=== PATIENT | female | born 1955 | race Caucasian/White ===

== ENCOUNTER 2018-10-24 16:52 | Inpatient (IN) ==
[2018-10-24] MEDS ORDERED: ZOFRAN IV PRN (17:34)
[2018-10-24] MEDS ORDERED: NS 1,000 ML IV SCH (17:45)
[2018-10-24] MEDS ORDERED: LOVENOX SUBQ SCH (17:45)
[2018-10-24] MEDS: PEPCID IV SCH (18:04)
[2018-10-24] MEDS: SODIUM CHLORIDE 0.9% INJ SCH (18:04)
[2018-10-24 18:25] LABS: BASO# 0.06 X1000 (0.0-0.2); BASO% 0.6 % (0.0-0.8); EOS# 0.28 X1000 (0.0-0.7); EOS% 2.6 % (0.0-10.0); HEMOGLOBIN 13.7 g/dL (12.0-16.0); IMM GRAN# 0.02 X1000 (0.0-0.04); IMM GRAN% 0.2 % (0.0-0.5); LYMPH# 3.61 X1000 (1.2-3.4); LYMPH% 33.3 % (20.5-51.1); MCH 30.2 PG (27-31); MCHC 32.6 g/dL (33-37); MCV 92.7 FL (81-99); MONO# 0.99 X1000 (0.11-0.59); MONO% 9.1 % (1.7-9.3); MPV 12.3 FL (7.4-10.4); NEUT# 5.89 X1000 (1.4-6.5); NEUT% 54.2 % (42.2-75.2); PLT 241 X1000 (130-400); RBC 4.53 XMIL (4.2-5.4); WBC 10.85 X1000 (4.8-10.8)
[2018-10-24 18:45] LABS: ALB/GLOB RATIO 1.2; ALBUMIN 4.1 g/dL (3.5-5.0); CALCIUM 9.4 mg/dL (8.8-10.2); CREATININE 1.2 mg/dL (0.5-0.9); TOTAL BILIRUBIN 0.19 mg/dL (0.20-1.00); TOTAL PROTEIN 7.6 g/dL (6.3-8.3)
[2018-10-24] MEDS ORDERED: SEROQUEL PO SCH (21:00)
[2018-10-24] MEDS ORDERED: MAGNESIUM GLUCONATE PO SCH (21:00)
[2018-10-24] MEDS ORDERED: REQUIP PO SCH (21:00)
--- NOTE | 2018-10-24 22:06 | Diag Imaging Result Doc PS360 ---
EXAM: CT ABD/PELVIS W/IV CONT ONLY 10/24/2018 HISTORY: Abdominal pain TECHNIQUE: This exam was performed using automated exposure control, adjustment of mA or kV according to patient size, and/or use of iterative reconstruction technique. COMMENT: The current study is compared with the previous examination of 02/01/2016. There is a 5 mm nodule in the right lower lobe which was not included on the previous exam. It was however on 07/29/2014. There is some mild platelike atelectasis in both lower lobes. There has been cholecystectomy. There is no evidence of abdominal aortic aneurysm and the mesenteric and renal arteries are patent. 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 The pancreas is stable in appearance. There is no evidence of hydronephrosis or stones. There has apparently been previous resection or ablation of the posterior lateral left kidney. This was also the case at the time the previous study. There is some fluid and gas in portions of the colon. Small bowel is not distended. There is no evidence of significant adenopathy. There is a small cyst inferiorly in the right right hepatic lobe which was also present previously. Pelvis: There is no evidence of appendicitis. There is stool and gas in the rectosigmoid without evidence of inflammation. The urinary bladder is unremarkable. There is no evidence of free fluid. There are some spondylotic changes in the lumbar spine which has not changed significantly since the previous study. IMPRESSION: No evidence of acute intra-abdominal or pelvic disease. Bibasilar atelectasis. Electronically signed by Kee Luis 10/24/2018 10:04 PM
--- NOTE | 2018-10-24 22:21 | HISTORY AND PHYSICAL ---
CHIEF COMPLAINT: Complains of upper abdominal pain for the last 2 days. HISTORY OF PRESENT ILLNESS: She is a 63-year-old, white female, basically came in with abdominal pain since 2 days. Upon workup, amylase was high. The patient basically admitted to the hospital with pancreatitis. Waiting for CT scan of the abdomen and pelvis. PAST MEDICAL HISTORY: Depression/anxiety, hyperlipidemia, dysautonomia, osteoporosis, vitamin D deficiency, postmenopausal, atrophic vaginitis. PAST SURGICAL HISTORY: Tonsillectomy, splenectomy, complete hysterectomy, left arm lipoma excision, status post partial nephrectomy due to complex benign cyst. MEDICATIONS: Xanax 0.5 p.o. t.i.d., metoprolol 25 daily, Lyrica 300 daily, Effexor 75 mg daily, Prilosec 40 mg daily. Quetiapine 50 at bedtime, Prozac 40 daily, Florinef 0.1 daily, magnesium 600 daily, Requip 0.5 at bedtime. ALLERGIES: Trimethoprim, Bactrim. SOCIAL HISTORY: . Two children. Living in [place], smoking half a pack a day for 40 years. No alcohol. FAMILY HISTORY: Father of [place]. Mom recently , deconditioning with a lot of medical problems. HEALTH MAINTENANCE: Shingles 2015. Tetanus 2004, mammography 2017, DEXA scan 2015. Pap smear 2011, colonoscopy [address] Abbasi. REVIEW OF SYSTEMS: HEENT Exam: No headache. No vision problem. No earache. No sore throat. Neck: No goiter. No lymphadenopathy. No bruit. Cardiopulmonary: No chest pain, shortness of breath, PND, orthopnea. GI: Upper abdominal pain mostly on the left side radiating to the back. No hematochezia and no constipation. Extremities: No joint pain. Neuro exam: No focal symptoms or weakness. PHYSICAL EXAMINATION: VITAL SIGNS: Temperature is 98, pulse 73, blood pressure is stable. 5 feet 3 inches, 149 pounds. HEENT: Atraumatic, normocephalic. Pupils equal, react to light. TMs are normal. Nose and throat within normal limits. NECK: Supple. No lymphadenopathy. No goiter. CHEST: Bilateral air entry. HEART: Sounds are regular. No murmur. ABDOMEN: Belly is soft, nontender. Good bowel sounds. EXTREMITIES: No peripheral edema, cyanosis. NEUROLOGIC: No obvious neurological deficits. INVESTIGATIONS: White cell count 10, hematocrit 42, platelets 241. Sodium 138, potassium 4, chloride 101, BUN 27, creatinine 1.2. LFTs were normal. Amylase was coming down since yesterday. ASSESSMENT: A 63-year-old, white female, admitted to the hospital basically with abdominal pain on the left side, elevated amylase with pancreatitis. PLAN: CT scan of the abdomen and pelvis. Ultrasound of the abdomen. Check the lipid panel. Conservative management. IV fluids. DVT/GI prophylaxis as per order sheet reconcile. Follow up on the pending labs and based on that, further recommendations will be followed. cc: Krish Roper MD
[2018-10-25] MEDS: XANAX PO SCH ×2 (01:46→08:55)
[2018-10-25] MEDS: PEPCID IV SCH (06:06)
[2018-10-25] MEDS: SODIUM CHLORIDE 0.9% INJ SCH (06:06)
[2018-10-25 07:04] LABS: CHOLESTEROL 191 mg/dL (0-200); HDL 44 mg/dL (45-65); LDL 115 mg/dL; TRIGLYCERIDES 162 mg/dL (35-135); VLDL 32 mg/dL
[2018-10-25 07:44] VITALS: BP 105/62
[2018-10-25] MEDS ORDERED: LYRICA PO SCH (09:00)
[2018-10-25] MEDS ORDERED: PRILOSEC PO SCH (09:00)
[2018-10-25] MEDS ORDERED: TOPROL XL PO SCH (09:00)
[2018-10-25] MEDS ORDERED: EFFEXOR PO SCH (09:00)
[2018-10-25] MEDS ORDERED: PROZAC PO SCH (09:00)
[2018-10-25] MEDS ORDERED: FLORINEF PO SCH (09:00)
--- NOTE | 2018-10-27 19:08 | DISCHARGE SUMMARY ---
ADMISSION DATE: 10/24/2018 DISCHARGE DATE: 10/25/2018 DISCHARGING DIAGNOSIS: Upper abdominal pain due to pancreatitis, etiology to be determined. SECONDARY DIAGNOSES: 1. Hyperlipidemia. 2. Dysautonomia. 3. Osteoporosis. 4. Vitamin D deficiency. 5. Postmenopausal atrophic vaginitis. 6. Hyperlipidemia. 7. Depression with anxiety. BRIEF HISTORY: Please see the H and P that was done on 10/24/2018. In brief, she is a 63-year- old white female who was seen in my office with left-sided upper abdominal pain. Outpatient workup showed amylase was high. She is very tender. Options were discussed. The patient was admitted for full workup. HOSPITAL COURSE: Patient was given IV fluids, IV Pepcid, and Zofran for nausea. Further workup. CT scan of the abdomen and pelvis was negative. She had a gallbladder surgery prior in [address] Messina, and follow-up amylase was normal. Lipid panel was normal. She denies drinking any alcohol. The following day, her symptoms are much improved. She has been tolerating the diet very well. LABORATORY DATA: CBC: White cell count 10.8, hematocrit 42, platelets 241,000. Sodium 138, potassium 4, chloride 101, BUN 27, creatinine 1.2. LFTs were normal. Amylase came back normal. Triglycerides 162, cholesterol 191, HDL 40. CT scan of the abdomen and pelvis with no evidence of acute intra-abdominal pelvic disease. Bibasilar atelectasis. Status post gallbladder surgery. A 5 mm nodule in the right lower lobe nodule. No abdominal aortic aneurysm, pancreatitis stable. No evidence of appendicitis. DISCHARGE INSTRUCTIONS: 1. Xanax 0.5 p.o. t.i.d. 2. Metoprolol 25 daily. 3. Lyrica 300 daily. 4. Effexor 75 daily. 5. Prilosec 40 daily. 6. Seroquel 50 daily. 7. Prozac 40 daily. 8. Florinef 0.1 daily. 9. Requip 0.5 mg at bedtime. 10. Follow up in my office in 2 weeks. cc: Krish Roper MD
== END 2018-10-25 09:45 | disposition home or self-care (01) | DRG 440 ==
LOC: DIRADM 16:52 → 4N 17:00
PROVIDERS: ADMIT Internal Medicine; ATTEND Internal Medicine
CPT/HCPCS: 74177; 80053; 80061; 82150; 85025; 87088; A9270; J1650; J2405; J7030; Q9967; S0028